=== PATIENT | male | born 1955 | race Caucasian/White ===

== ENCOUNTER → 2017-01-09 | Outpatient (CLI) | payer OTHER | LOC: US 07:45 | DX: R17 Unspecified jaundice (principal); E78.5 Hyperlipidemia, unspecified; E66.3 Overweight; Z90.49 Acquired absence of other specified parts of digestive tract | CPT/HCPCS: 36415; 76705; 80074; 80076; 82103; 82728; 83540; 83550; 86039; 86255 ==